=== PATIENT | female | born 1995 | race Caucasian/White ===

== ENCOUNTER 2020-08-22 18:29 | Emergency (ER) | payer BC ==
[~2020-08-22] VITALS: Ht 157.5 cm; Wt 59.0 kg
[2020-08-22] MEDS ORDERED: LORAZEPAM 1 MG TAB PO ONE (20:15)
[2020-08-22] MEDS ORDERED: ACETAMIN/BUTALBITAL/CAFFEINE TAB PO ONE (22:15)
[2020-08-22] MEDS ORDERED: ACETAMIN/BUTALBITAL/CAFFEINE TAB ONE (22:17)
== END 2020-08-22 22:50 | disposition home or self-care (01) ==
LOC: ER 20:13
DX: R51.9 Headache, unspecified (principal); F41.9 Anxiety disorder, unspecified
CPT/HCPCS: 70450; 71045; 93005; 99283